=== PATIENT | male | born 1945 | race Caucasian/White ===

== ENCOUNTER 2020-05-19 10:26 | Emergency (ER) | payer MEDICARE ==
[~2020-05-19] VITALS: Ht 188 cm; Wt 102.0 kg
[2020-05-19] MEDS ORDERED: LIDOcaine 1.5% w/epinephrine 1:200,000 5ml ampul IJ ONE (11:20)
[2020-05-19] MEDS ORDERED: bacitracin 15gm ointment TP ONE (11:20)
[2020-05-19] MEDS ORDERED: EPINEPHRINE IJ ONE (11:25)
[2020-05-19] MEDS ORDERED: LIDOCAINE 1.5% IJ ONE (11:25)
[2020-05-19] MEDS ORDERED: LIDOcaine 1% w/epiNEPHrine 1:200,000 30ml vial IJ ONE (11:35)
[2020-05-19 12:46] VITALS: BP 147/74
== END 2020-05-19 14:47 | disposition home or self-care (01) ==
LOC: ER 10:27
DX: S01.112A Laceration without foreign body of left eyelid and periocular area, initial encounter (principal); H11.32 Conjunctival hemorrhage, left eye; I25.10 Atherosclerotic heart disease of native coronary artery without angina pectoris; I25.2 Old myocardial infarction; Z98.61 Coronary angioplasty status; Z95.1 Presence of aortocoronary bypass graft; Z88.5 Allergy status to narcotic agent; V94.9XXA Unspecified water transport accident, initial encounter; Y93.89 Activity, other specified; Y92.89 Other specified places as the place of occurrence of the external cause; Y99.8 Other external cause status
CPT/HCPCS: 12013; 12053; 70450; 70486; 99285